=== PATIENT | female | born 1955 | race Hispanic/Latino ===

== ENCOUNTER 2019-06-11 20:44 | Emergency (ER) | payer OTHER ==
--- NOTE | 2019-06-11 21:40 | RAD ---
FOUR VIEWS LEFT KNEE: Date: 06-11-19 Comparison: None. History: Fall, trauma, pain. FINDINGS: No displaced fracture. No knee joint effusion. No evidence for dislocation. Mild posterior patellar o steophyte formation. IMPRESSION: No acute fracture or evidence of dislocation. POS: OFF
--- NOTE | 2019-06-11 21:41 | RAD ---
THREE VIEWS RIGHT WRIST: Date: 06-11-19 Comparison: None. History: Fall, trauma, pain. FINDINGS: Linear calcification adjacent to the ulnar styloid may be on the basis of calcification of the triang ular fibrocartilage complex or a small chip fracture of the ulnar styloid. There is a comminuted impa cted distal right radial fracture with extension into the distal radial ulnar joint and the radiocarp al joint with dorsal impaction, angulation, and displacement. IMPRESSION: Comminuted intraarticular fracture of the distal right radius with impaction as well as dorsal displa cement and angulation. POS: OFF
[2019-06-11] MEDS ORDERED: HYDROcodone/Acetaminophen 7.5/325 mg Tablet ONE (21:43)
[2019-06-11] MEDS ORDERED: Lidocaine 2% 10 ML INJ ONE (21:49)
--- NOTE | 2019-06-11 22:19 | RAD ---
2 views of the right forearm: 06/11/2019 COMPARISON: None HISTORY: Fall, trauma, pain FINDINGS: There is a comminuted impacted intra-articular fracture of the distal right radius noted wi th dorsal angulation and dorsal displacement. There is a probable associated fracture at the base of the ulnar styloid. No elbow joint effusion is apparent. No evidence for dislocation of the right wrist. IMPRESSION: Comminuted impacted intra-articular fracture of the distal right radius with dorsal angul ation and dorsal displacement.
[2019-06-12] MEDS ORDERED: Ketamine 50 MG/ML (10ML VIAL) ONE (00:08)
[2019-06-12] MEDS ORDERED: Ondansetron ODT 4 MG TAB ONE (02:29)
--- NOTE | 2019-06-12 07:27 | RAD ---
RIGHT WRIST 2 VIEWS: Date: 06/12/19 INDICATION: Post reduction image. COMPARISON: Prior exam dated 06/11/19 at 2112 hours IMPRESSION: Since the comparison examination, there has been interval placement of a fiberglass splint. There is improved angulation of the comminuted interarticular distal radius fracture. There is improvement in alignment of the ulnar styloid fracture. Fracture detail is somewhat limited due to the overlying spl int. IMPRESSION: 1. Some mild improvement in the dorsal angulation seen involving the comminuted, dorsally impacted i nterarticular distal radius fracture. 2. Mild interval improvement in the alignment of the ulnar styloid process fracture. POS: BH
== END 2019-06-12 02:25 | disposition home or self-care (01) ==
LOC: ERS 20:44
DX: S52.571A Other intraarticular fracture of lower end of right radius, initial encounter for closed fracture (principal); S80.01XA Contusion of right knee, initial encounter; S00.83XA Contusion of other part of head, initial encounter; W18.30XA Fall on same level, unspecified, initial encounter
CPT/HCPCS: 25605; J2001; Q0162

== ENCOUNTER 2019-06-14 07:24 | Outpatient (CLI) | payer OTHER ==
[2019-06-14 13:23] LABS: #Lymphocytes 1.8 thou/uL (1.20-3.40); #Monocytes 0.4 thou/uL (0.11-0.59); #Neutrophils 6.2 thou/uL (1.40-6.50); %Basophils 0.3 % (0.0-1.0); %Monocytes 5.2 % (0.0-10.0); %Neutrophils 73.5 % (42.0-75.0); Hemoglobin 14.2 g/dL (12.0-16.0); Mean Corpuscular HGB CONC 33.4 g/dL (32.0-36.0); Mean Corpuscular Hemoglobin 30.1 pg (27.0-31.0); Mean Corpuscular Volume 90.2 fL (78.0-98.0); Mean Platelet Volume 6.8 fL (7.4-10.4); Platelet Count 253 thou/uL (130-400); RBC Distribution Width 11.6 % (11.5-14.5); White Blood Cell (WBC) Count 8.5 thou/uL (4.8-10.8)
[2019-06-14 13:51] LABS: Anion Gap 14 mmol/L (10-20); BUN (Urea Nitrogen) 10 mg/dL (9.8-20.1); Calc. Creatinine Clearance 0 mL/min (70-130); Calcium 9.8 mg/dL (7.8-10.44); Carbon Dioxide 29 mmol/L (23-31); Chloride 99 mmol/L (98-107); Estimated GFR-MDRD 82; Glucose 106 mg/dL (80-115); Potassium 4.3 mmol/L (3.5-5.1); Sodium 138 mmol/L (136-145)
== END 2019-06-14 07:25 | disposition home or self-care (01) ==
LOC: LABBT 07:24
PROVIDERS: ATTEND Orthopaedic Surgery
DX: Z01.818 Encounter for other preprocedural examination (principal); S62.101A Fracture of unspecified carpal bone, right wrist, initial encounter for closed fracture
CPT/HCPCS: 80048; 85025; 93005; 93010

== ENCOUNTER 2019-06-15 08:21 | Day surgery (SDC) | payer OTHER ==
[2019-06-14 12:01] VITALS: BMI 33.0
[2019-06-15] MEDS ORDERED: Fentanyl 100 MCG/2 ML VIAL ONE ×2 (09:40→09:53)
[2019-06-15] MEDS ORDERED: Midazolam HCl 2 mg/2 ml Vial ONE (09:40)
[2019-06-15] MEDS ORDERED: Scopolamine 1.5 mg/72 hour Patch ONE (09:52)
--- NOTE | 2019-06-15 11:35 | RAD ---
Intraoperative imaging right wrist: 06/15/2019 COMPARISON: 06/12/2019 HISTORY: ORIF, wrist fracture FINDINGS: The distal right radial fracture has been treated with a volar screw and plate fixation. There is a fracture at the base of the radial styloid. There is anatomic alignment at the radial frac ture site. IMPRESSION: ORIF as above.
[2019-06-15] MEDS ORDERED: Bupivacaine HCl 0.5%/Epinephrine 1:200,000/PF 30 ml Vial ONE (13:48)
[2019-06-15] MEDS ORDERED: Lidocaine 1% PF 5 ML VIAL ONE (13:49)
[2019-06-15] MEDS ORDERED: PROPOFOL 200 MG/20 ML VIAL ONE (13:49)
[2019-06-15] MEDS ORDERED: Ondansetron PF 4 MG/2 ML Vial ONE (13:49)
[2019-06-15] MEDS ORDERED: Ketorolac Tromethamine 30 MG/ML VIAL ONE (13:49)
[2019-06-15] MEDS ORDERED: Dexamethasone 20 MG/5 ML VIAL ONE (13:49)
--- NOTE | 2019-06-15 15:03 | OP ---
DATE OF PROCEDURE: 06/15/2019 PREOPERATIVE DIAGNOSIS: Right distal radius intra-articular metaphyseal fracture. POSTOPERATIVE DIAGNOSIS: Right distal radius intra-articular metaphyseal fracture. OPERATIVE PROCEDURES: Open reduction and internal fixation of right distal radius comminuted intra-articular metaphyseal fracture. RESEARCH ANIMAL ATTENDANT: Tee Machado PA-C ANESTHESIA: General via LMA augmented with a single-shot supraclavicular block. COMPONENTS USED: Synthes two column LCP variable angle volar plate with four-hole plate. TOURNIQUET TIME: 24 minutes. FINDINGS: Comminuted distal radius intra-articular metaphyseal fracture and osteopenia. ESTIMATED BLOOD LOSS: Less than 10. DRAINS: None. SPECIMENS: None. COMPLICATION: None. COUNTS: Correct. INDICATION FOR SURGERY: Ana Paula is a 63-year-old female, who fell on outstretched right forearm, resulting in a comminuted fracture. She has elected to proceed with open reduction and internal fixation as definitive treatment of her problems. DESCRIPTION OF PROCEDURE: Job ID: [id number]
== END 2019-06-15 13:07 | disposition home or self-care (01) ==
LOC: SDC 08:21
PROVIDERS: ATTEND Orthopaedic Surgery
PROC: 0PSH04Z Reposition Right Radius with Internal Fixation Device, Open Approach (ICD-10-PCS; principal; 2019-06-15)
PROC: 3E0T3BZ Introduction of Anesthetic Agent into Peripheral Nerves and Plexi, Percutaneous Approach (ICD-10-PCS; principal; 2019-06-15)
DX: S52.571A Other intraarticular fracture of lower end of right radius, initial encounter for closed fracture (principal); M19.90 Unspecified osteoarthritis, unspecified site; G89.18 Other acute postprocedural pain
CPT/HCPCS: 76000; C1713; J0670; J0690; J1100; J1885; J2001; J2250; J2405; J2704; J3010